=== PATIENT | female | born 1950 | race Caucasian/White ===

== ENCOUNTER 2018-04-04 13:33 | Emergency (ER) | payer MEDICARE, OTHER ==
[2018-04-04] MEDS ORDERED: Ketorolac Tromethamine 30 MG/ML VIAL ONE (15:07)
[2018-04-04] MEDS ORDERED: Morphine 2 MG/ML SYRINGE ONE (15:07)
--- NOTE | 2018-04-04 15:22 | RAD ---
RIGHT HIP 2 VIEWS: HISTORY: A 67-year-old female with a history of right hip pain following an injury. FINDINGS: Mild degenerative changes right hip joint. No acute fracture or dislocation. IMPRESSION: Degenerative changes without fracture or dislocation. POS: NAY
[2018-04-04] MEDS ORDERED: Ondansetron PF 4 MG/2 ML Vial ONE (15:32)
== END 2018-04-04 16:15 | disposition home or self-care (01) ==
LOC: ERS 13:33
DX: S30.0XXA Contusion of lower back and pelvis, initial encounter (principal); W20.8XXA Other cause of strike by thrown, projected or falling object, initial encounter
CPT/HCPCS: 96374; 96375; J1885; J2270; J2405

== ENCOUNTER 2018-08-21 10:18 | Outpatient (CLI) | payer MEDICARE, OTHER ==
--- NOTE | 2018-08-21 11:50 | MRI ---
MRI Cervical spine without contrast: HISTORY: Neck pain, radiculopathy. COMPARISON: None available. FINDINGS: The craniocervical junction is unremarkable. C1-2:Prominent degenerative changes are seen at the articulation of the odontoid with anterior arch o f C1. No central canal narrowing is present. C2-3:No central disc bulge or disc herniation is present. Central spinal canal and neural foramina ar e patent. C3-4:Broad-based disc osteophyte complex is present, eccentrically greater on the right. This narrows the ventral subarachnoid space. The left neural foramen is patent, but there is severe right-sided neural foraminal narrowing. C4-5:Broad-based disc osteophyte complex is present. Mild effacement of the ventral subarachnoid spac e is present. The left neural foramen is patent. There is mild right-sided neural foraminal narrowing. C5-6:Trace anterolisthesis of C5 on C6 is present. A mild broad-based disc osteophyte complex is pres ent with facet hypertrophic changes. There is narrowing of the ventral subarachnoid space with slight flattening of the anterior aspect of the spinal cord. Left neural foramen is patent with mild right-sided neural foraminal narrowing. C6-7: Broad-based disc osteophyte complex is present. There is loss of intervertebral disc height. Th ere is mild effacement of the ventral subarachnoid space. Neural foramina are patent. C7-T1:Mild broad-based disc osteophyte complex is present. There is narrowing of the ventral subarach noid space. Neural foramina appear patent. T1-2 level: There is a mild disc osteophyte complex which narrows ventral subarachnoid space. The dayo ral foramina are patent. IMPRESSION: Multilevel degenerative changes in the cervical spine.
== END 2018-08-21 10:19 | disposition home or self-care (01) ==
LOC: BICMRI 10:18
PROVIDERS: ATTEND Family Medicine
DX: M47.22 Other spondylosis with radiculopathy, cervical region (principal)
CPT/HCPCS: 72141

== ENCOUNTER 2020-03-23 08:58 | Outpatient (CLI) | payer MEDICARE, OTHER ==
--- NOTE | 2020-03-24 07:25 | MMO ---
Bilateral MAMMO Bilat Screen [facility]. CLINICAL HISTORY: Patient is 69 years old and is seen for screening. The patient has no family history of breast cancer. The patient has no personal history of cancer. VIEWS: The views performed were: bilateral craniocaudal with tomosynthesis and bilateral mediolateral oblique with tomosynthesis. FILMS COMPARED: The present examination has been compared to prior imaging studies performed at [facility] on 01/21/2014 and 08/25/2015. This study has been interpreted with the assistance of computer-aided detection. MAMMOGRAM FINDINGS: There are scattered fibroglandular densities. There are vascular calcifications seen in both breasts. There are no suspicious masses, suspicious calcifications, or new areas of architectural distortion. IMPRESSION: A ROUTINE FOLLOW-UP MAMMOGRAM IN 1 YEAR IS RECOMMENDED. THE RESULTS OF THIS EXAM WERE SENT TO THE PATIENT. ACR BI-RADS Category 2 - Benign finding MAMMOGRAPHY NOTE: 1. A negative mammogram report should not delay a biopsy if a dominant of clinically suspicious mass is present. 2. Approximately 10% to 15% of breast cancers are not detected by mammography. 3. Adenosis and dense breasts may obscure an underlying neoplasm. Reported by: LUZMARIA CONROY MD Electonically Signed: [id number]
== END 2020-03-23 08:59 | disposition home or self-care (01) ==
LOC: BICMAMMO 08:58
PROVIDERS: ATTEND Family Medicine
DX: Z12.31 Encounter for screening mammogram for malignant neoplasm of breast (principal)
CPT/HCPCS: 77063; 77067

== ENCOUNTER 2024-12-25 08:55 | Outpatient (CLI) | payer MEDICARE | END 2024-12-25 08:56 | disposition home or self-care (01) | LOC: BICMAMMO 08:55 | PROVIDERS: ATTEND Family Medicine | DX: Z12.31 Encounter for screening mammogram for malignant neoplasm of breast (principal) | CPT/HCPCS: 77063; 77067 ==